=== PATIENT | female | born 1995 | race Two or more races ===

== ENCOUNTER 2025-08-17 15:20 | Emergency (ER) | payer OTHER ==
[~2025-08-17] VITALS: Ht 177.8 cm; Wt 61.2 kg
[2025-08-17 15:53] VITALS: BP 131/73; TEMP 98.1
[2025-08-17 16:27] LABS: APPEARANCE,URINE CLEAR (CLEAR); BLOOD, URINE Moderate Ery/uL (NEGATIVE); LEUKOCYTE ESTERASE ,URINE Trace (NEGATIVE); NITRITE, URINE NEGATIVE (NEGATIVE); UGLUCOSE 100 MG/DL mg/dL (NEGATIVE)
[2025-08-17 16:30] LABS: ADD URINE CULTURE NO; PREGNANCY TEST URINE QUAL NEGATIVE (NEGATIVE); SQUAMOUS EPITHELIAL CELL,UR Few /HPF (None Seen)
[2025-08-17] MEDS ORDERED: CEPH-570 PO (17:22)
[2025-08-17 17:25] VITALS: O2SAT 99
[2025-08-17] MEDS ORDERED: BACI/NEOM/POLY B OINT PKT 1 UDPKT PACKET TP ONE (17:30)
== END 2025-08-17 17:25 | disposition home or self-care (01) ==
LOC: ER 15:29
DX: N39.0 Urinary tract infection, site not specified (principal)
CPT/HCPCS: 81001; 84703-TC